=== PATIENT | male | born 1955 | race Caucasian/White ===

== ENCOUNTER 2017-12-23 09:12 | Day surgery (SDC) | payer OTHER ==
[~2017-12-23] VITALS: Ht 177.8 cm; Wt 74.8 kg
--- NOTE | ~2017-12-23 | OP ---
PATIENT NAME: JANICE RAUSCH MEDICAL RECORD: [id number] :53 LOCATION:D.OPS ADMISSION DATE: SURGEON: ANDRE VEE MD DATE OF OPERATION: 12/23/2017 PREOPERATIVE DIAGNOSES: Disc herniation L4-L5 right with right L4 and L5 radiculopathies. POSTOPERATIVE DIAGNOSES: Disc herniation L4-L5 right with right L4 and L5 radiculopathies with foraminal stenosis and lumbar spinal stenosis. REFERRING PHYSICIAN: Jsoe Gutiérrez MD SURGEON: Andre Vee MD PROCEDURE: Lumbar laminectomy, medial facetectomy, and foraminotomy L4-L5 right with discectomy. DESCRIPTION AND TECHNIQUE: After induction of general endotracheal anesthesia, the patient was rolled prone on a Pratik frame. Lumbar spine was prepped and draped in the usual sterile fashion. Fluoroscopic x-ray and spinal needle localized the L4-L5 interspace on the right side. A stab incision was created with #11 blade. Series of dilators was used to advance a METRx retractor to the L4-L5 interspace on the right side. Level was confirmed with fluoroscopic x-ray. A Ziarcoas Remi drill and microscope were used to perform laminotomy, medial facetectomy and foraminotomy L4-L5 on the right. Hypertrophied ligamentum flavum was removed with Cloward rongeurs. Following this, there is an obvious disc herniation identified with the axilla of the right L5 nerve root. This was removed in a piecemeal fashion. Disc fragments were followed superiorly into spinal canal nearly to the mid body of L4. These additional disc fragments were removed as well. The L4 and L5 nerve roots were decompressed well. Meticulous hemostasis was maintained throughout the wound. The wound was irrigated with copious amounts of Ancef irrigant solution. The retractors removed. The fascia was closed with 2-0 Vicryl suture. Subdermal layer was closed with 3-0 Vicryl sutures. The skin was closed with fanny. A sterile dressing was applied to the wound. The patient was awakened in good condition, taken to recovery. All counts were reported as correct. Estimated blood loss was minimal. 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
[~2017-12-23 09:12] MED LIST: ADVAIR HFA 230-12 GM INH; BAYER CHEWABLE81 MG PO; CYCLOBENZAPRINE10 MG PO; HYDROCHLOROTH12.5 M1 PO; LIPITOR20 MG PO; NAPROSYN500 MG PO; NEURONTIN 300300 MG PO; PRINIVIL10 MG PO; VENTOLIN HFA18 GM INH
[2017-12-23 09:41] LABS: HEMATOCRIT 45.2 % (42.0-54.0); HEMOGLOBIN 16.4 g/dL (13.5-17.5); MCH 32.2 pg (26.0-34.0); MCHC 36.3 g/dL (31.0-37.0); MCV 88.6 fL (80.0-100.0); RBC 5.1 10x6/uL (4.20-6.10); RDW 12.8 % (11.5-14.5)
[2017-12-23] MEDS ORDERED: DESERYL50 M2 PO (11:44)
[2017-12-23 12:02] VITALS: BP 138/78; Ht 177.8 cm; Wt 74.8 kg
[2017-12-23] MEDS ORDERED: NORCO 10-325 TA1 TAB PO (14:59)
== END 2017-12-23 19:00 | disposition home or self-care (01) ==
LOC: D.OPS 09:12
PROVIDERS: Anesthesiology
DX: M51.16 Intervertebral disc disorders with radiculopathy, lumbar region (principal); M48.061 Spinal stenosis, lumbar region without neurogenic claudication; Z01.812 Encounter for preprocedural laboratory examination